=== PATIENT | female | born 1950 | race Caucasian/White ===

== ENCOUNTER 2019-08-04 10:21 | Outpatient (CLI) | payer MEDICARE, BC ==
[2019-08-04] MEDS ORDERED: ASPI-496 PO (11:09)
[2019-08-04] MEDS ORDERED: METO50TA82 PO (11:09)
[2019-08-04] MEDS ORDERED: MELO7.5T31 PO (11:09)
[2019-08-04] MEDS ORDERED: ATOR10TA9 PO (11:09)
[2019-08-04] MEDS ORDERED: HYDROCHLOROTH12.5 MG PO (11:09)
[2019-08-04] MEDS ORDERED: CHOL10003 PO (11:09)
[2019-08-04] MEDS ORDERED: NAPR-685 PO (11:09)
[2019-08-04] MEDS ORDERED: LOSA100T14 PO (11:09)
[2019-08-04] MEDS ORDERED: MULT1TAB60 PO (11:09)
[2019-08-04] MEDS ORDERED: LEVO100T5 PO (11:09)
[2019-08-04] MEDS ORDERED: ACET-1600 PO (11:09)
[2019-08-04 12:09] LABS: INTERNATIONAL NORMALIZED RATIO 0.91 (0.93-1.1); PROTHROMBIN TIME 9.6 Seconds (9.6-11.5)
== END 2019-08-04 23:59 | disposition home or self-care (01) ==
LOC: STAR 10:21
PROVIDERS: ATTEND Orthopaedic Surgery
DX: Z01.818 Encounter for other preprocedural examination (principal); M16.11 Unilateral primary osteoarthritis, right hip; Z79.899 Other long term (current) drug therapy
CPT/HCPCS: 36415; 83036; 85610; 85730; 87081; 87147

== ENCOUNTER 2019-08-12 07:51 | Observation (INO) | payer MEDICARE, BC ==
[~2019-08-12] VITALS: Ht 154.9 cm; Wt 95.8 kg
[2019-08-12] MEDS: LEVOTHYROXINE 100 MCG TABLET PO SCH (07:30)
[~2019-08-12 07:51] MED LIST: ACET-1600 PO; ACETAMINOPHEN 650 MG/20.3 ML UDC PO PRN; ASPI-496 PO; ATOR10TA9 PO; BISACODYL 10 MG SUPP PR PRN; CHOL10003 PO; DIPHENHYDRAMINE 25 MG CAPSULE PO PRN; EPINEPHRINE 1 MG/ML, 1ML ONE; HYDROCHLOROTH12.5 MG PO; HYDROcodone/APAP 5/325 TABLET PO PRN; KETOROLAC 60 MG/2 ML ONE; LEVO100T5 PO; LOSA100T14 PO; MAGNESIUM HYDROXIDE 8%, 30ML UDC PO PRN; MELO7.5T31 PO; METO50TA82 PO; MULT1TAB60 PO; NAPR-685 PO; ONDANSETRON 2MG/ML, 2ML IV PRN; ONDANSETRON 4 MG TABLET PO PRN; ROPIvacaine/PF 0.5%, 20 ML ONE; ROPIvacaine/PF 0.5%, 30 ML ONE; SENNA/DOCUSATE TABLET PO PRN; SODIUM CHLORIDE 0.9% 50 ML ONE; TRANEXAMIC ACID 100 MG/ML, 10ML ONE; VANCOMYCIN 1,000 MG ONE; ZOLPIDEM 5MG TABLET PO PRN
[2019-08-12] MEDS ORDERED: LACTATED RINGERS 1,000 ML IV STA (08:20)
[2019-08-12] MEDS ORDERED: ACETAMINOPHEN 500 MG TABLET PO STA (08:22)
[2019-08-12 08:23] VITALS: BP 161/86
[2019-08-12] MEDS ORDERED: GABAPENTIN 300 MG CAPSULE PO STA (08:23)
[2019-08-12] MEDS: LOSARTAN 100 MG TAB PO SCH (09:00)
[2019-08-12] MEDS: HYDROCHLOROTHIAZIDE 12.5 MG CAPSULE PO SCH (09:00)
[2019-08-12] MEDS: DOCUSATE 100 MG CAPSULE PO SCH ×2 (09:00→20:14)
[2019-08-12] MEDS: METOPROLOL TARTRATE 50 MG TAB PO SCH ×2 (09:00→20:14)
[2019-08-12] MEDS ORDERED: FENTANYL PF 250 MCG/5ML ONE (09:19)
[2019-08-12] MEDS ORDERED: LACTATED RINGERS 1,000 ML IV SCH (09:30)
[2019-08-12] MEDS ORDERED: PHENYLEPHRINE 10 MG/ML ONE (10:40)
[2019-08-12] MEDS ORDERED: EPHEDRINE 50 MG/ML, 1ML ONE (10:40)
[2019-08-12] MEDS ORDERED: LIDOCAINE-MPF 2% ,5ML ONE (10:42)
[2019-08-12] MEDS ORDERED: PROPOFOL 10 MG/ML, 20ML ONE (10:42)
[2019-08-12] MEDS ORDERED: ROCURONIUM 10MG/ML,5ML ONE (10:42)
[2019-08-12] MEDS ORDERED: ONDANSETRON 2MG/ML, 2ML ONE (10:42)
[2019-08-12] MEDS ORDERED: NEOSTIGMINE 1 MG/ML, 10ML ONE (10:42)
[2019-08-12] MEDS ORDERED: GLYCOPYRROLATE 0.2MG/1ML, 5ML ONE (10:42)
[2019-08-12] MEDS ORDERED: SUCCINYLCHOLINE 20 MG/ML, 10ML ONE (10:42)
[2019-08-12] MEDS ORDERED: CEFAZOLIN 1,000 MG ONE (10:42)
[2019-08-12] MEDS ORDERED: DEXAMETHASONE 4 MG/ML, 1ML ONE (10:42)
[2019-08-12] MEDS ORDERED: ALBUTEROL/IPRATROPIUM 2.5MG/0.5MG, 3 ML NPPB PRN (11:00)
[2019-08-12] MEDS ORDERED: METOPROLOL 1 MG/ML, 5ML IV PRN (11:00)
[2019-08-12] MEDS ORDERED: PROMETHAZINE 25 MG/ML, 1ML IV PRN (11:00)
[2019-08-12] MEDS ORDERED: hydrALAzine 20 MG/ML, 1ML IV PRN (11:00)
[2019-08-12] MEDS ORDERED: MEPERIDINE/PF 25MG/ML,1ML IVPush PRN (11:00)
[2019-08-12] MEDS ORDERED: MIDAZOLAM 1 MG/ML, 2ML IV PRN (11:00)
[2019-08-12] MEDS ORDERED: OXYcodone 5 MG/5 ML ORAL.SOL UDC PO PRN (11:00)
[2019-08-12] MEDS ORDERED: HYDROmorphone 1 MG/ML, 1ML INJ ONE (11:35)
[2019-08-12] MEDS ORDERED: FENTANYL PF 100 MCG/2ML ONE (11:35)
[2019-08-12] MEDS ORDERED: OXYcodone 5 MG/5 ML ORAL.SOL UDC ONE (11:35)
[2019-08-12] MEDS: FENTANYL PF 100 MCG/2ML IV PRN ×3 (11:38→12:52)
[2019-08-12] MEDS: HYDROmorphone 2 MG/ML, 1ML IVPush PRN ×2 (12:15→12:59)
[2019-08-12] MEDS: NS + 20MEQ KCL 1,000 ML IV SCH (14:12)
[2019-08-12] MEDS: OXYcodone IR 5MG TABLET PO PRN ×3 (16:05→22:41)
[2019-08-12] MEDS: ASPIRIN 81 MG TABLET EC PO SCH (18:17)
[2019-08-12] MEDS: CEFAZOLIN PMX 2GM/50ML 50 ML IVPB SCH (18:17)
[2019-08-12 20:16] VITALS: BP 114/77
[2019-08-12] MEDS ORDERED: ATORVASTATIN 10 MG TABLET PO SCH (21:00)
[2019-08-13 00:37] VITALS: BP 112/73
[2019-08-13] MEDS: NS + 20MEQ KCL 1,000 ML IV SCH (02:42)
[2019-08-13] MEDS: CEFAZOLIN PMX 2GM/50ML 50 ML IVPB SCH (03:21)
[2019-08-13] MEDS: OXYcodone IR 5MG TABLET PO PRN ×2 (04:57→09:20)
[2019-08-13] MEDS: ASPIRIN 81 MG TABLET EC PO SCH (05:35)
[2019-08-13] MEDS: LEVOTHYROXINE 100 MCG TABLET PO SCH (05:35)
[2019-08-13] MEDS ORDERED: DEXAMETHASONE 4 MG/ML, 1ML IVPush SCH (06:00)
[2019-08-13 06:36] VITALS: BP 103/67
[2019-08-13] MEDS ORDERED: OXYC5CAP2 PO (08:49)
[2019-08-13] MEDS ORDERED: TRAM50TA2 PO (08:50)
[2019-08-13 09:19] VITALS: BP 116/71
[2019-08-13] MEDS: LOSARTAN 100 MG TAB PO SCH (09:20)
[2019-08-13] MEDS: DOCUSATE 100 MG CAPSULE PO SCH (09:20)
[2019-08-13] MEDS: HYDROCHLOROTHIAZIDE 12.5 MG CAPSULE PO SCH (09:20)
[2019-08-13] MEDS: METOPROLOL TARTRATE 50 MG TAB PO SCH (09:21)
== END 2019-08-13 10:13 | disposition home or self-care (01) ==
LOC: OUT 07:51 → 4NE 14:03 → OUT 23:36 → 4NE 23:36 → DCLOUNGE 08-13 10:04
PROVIDERS: ADMIT Orthopaedic Surgery; ATTEND Orthopaedic Surgery
DX: M16.11 Unilateral primary osteoarthritis, right hip (principal); M81.0 Age-related osteoporosis without current pathological fracture; G95.9 Disease of spinal cord, unspecified; E43 Unspecified severe protein-calorie malnutrition; I10 Essential (primary) hypertension; G47.30 Sleep apnea, unspecified; E07.9 Disorder of thyroid, unspecified; F10.10 Alcohol abuse, uncomplicated; Z79.899 Other long term (current) drug therapy; Z90.49 Acquired absence of other specified parts of digestive tract
CPT/HCPCS: 27130; 36415; 72170; 73501; 76000; 85014; 85018; 96365; 96366; 96375; 97161; C1713; C1776; G0378; J0171; J0330; J0690; J1100; J1170; J1885; J2370; J2405; J2704; J2710; J2795; J3010; J3370; J3480; J3490; J7120